=== PATIENT | female | born 1980 | race Caucasian/White ===

== ENCOUNTER → 2019-07-14 | Outpatient (REF) | payer BC ==
[~2019-07-14] MED LIST: IBUP-1114 PO; MAPA500T2 PO; PRENTAB20 PO
[2019-07-14 17:45] LABS: GLUCOSE CHALLENGE TEST 1 HOUR 112 MG/DL (LESS THAN 140)
[2019-07-14 17:59] LABS: HEMATOCRIT 41.7 % (36.0-47.0); HEMOGLOBIN 14.1 g/dl (12.0-15.5); MEAN CORPUSCULAR HEMOGLOBIN 31.7 pg (27.0-33.0); MEAN CORPUSCULAR HGB CONC 33.8 g/dl (32.0-36.5); MEAN CORPUSCULAR VOLUME 93.7 fl (80.0-96.0); PLATELET COUNT, AUTOMATED 278 10^3/uL (150-450); RED BLOOD COUNT 4.45 10^6/uL (4.00-5.40); WHITE BLOOD COUNT 11.1 10^3/uL (4.0-10.0)
[2019-07-14 18:12] LABS: RUBELLA IgG QUALITATIVE IMMUNE (IMMUNE)
[2019-07-14 18:40] LABS: HIV 1&2 SCREEN CENTAUR NEGATIVE (NEGATIVE)
[2019-07-14 21:19] LABS: CHLAMYDIA DNA AMPLIFICATION NEGATIVE (NEGATIVE); GC DNA AMPLIFICATION NEGATIVE (NEGATIVE)
[2019-07-17 09:58] LABS: HEPATITIS B SURFACE ANTIGEN NEGATIVE (NEGATIVE)
[2019-07-17 10:26] LABS: HEPATITIS C VIRUS ABY INDEX < 0.0 INDEX (<0.8)
== END ==
LOC: M PLALAB 12:23
PROVIDERS: ATTEND Obstetrics & Gynecology
DX: Z36.89 Encounter for other specified antenatal screening (principal); O09.529 Supervision of elderly multigravida, unspecified trimester

== ENCOUNTER → 2019-08-24 | Outpatient (CLI) | payer BC ==
--- NOTE | 2019-08-25 09:00 | REP ---
Clinical: Anatomical evaluation. Comparison: Variable . Findings: Examination demonstrates a single live intrauterine in variable presentation. motion is identified by technologist. Placenta is noted posterior and grade I with evidence for marginal previa essentially abutting the closed internal os. Amniotic fluid volume is normal. Cervix measures 3.4 cm in length and appears closed. No evidence for nuchal cord. Two presumed complex anterior intramural fibroids measure 2.7 cm and 2.5 cm maximal diameter. Gestational age by current measurements 19 weeks 5 days with JOB 01/13/2020 . FHR equals 154 beats per minute. BPD 4.3 cm 19 weeks 0 days HC 17.0 cm 19 weeks 4 days AC 14.1 cm 19 weeks 3 days FL 3.4 cm 20 weeks 4 days HL 3.2 cm 20 weeks 6 days HC/AC ratio 1.20 Estimated weight 319 grams ( 55th percentile). Anatomical assessment demonstrates normal structures including cranium, choroid plexus, cavum, cerebellum/posterior fossa, facial features, lungs, four-chamber heart/ventricular outflow tracts, diaphragm, stomach, cord insertion/three-vessel cord, kidneys/bladder, spine, and extremities. Impression: 1. Single live intrauterine in variable presentation demonstrating appropriate estimated weight. 2. Marginal previa. 3. Anatomical assessment is complete and normal. 4. Anterior intramural uterine fibroids.
== END ==
LOC: M WHC 15:05
PROVIDERS: ATTEND Advanced Practice Midwife
DX: O09.522 Supervision of elderly multigravida, second trimester (principal); Z3A.19 19 weeks gestation of pregnancy; O44.22 Partial placenta previa NOS or without hemorrhage, second trimester; D25.1 Intramural leiomyoma of uterus; O34.12 Maternal care for benign tumor of corpus uteri, second trimester

== ENCOUNTER → 2019-09-29 | Outpatient (REF) | payer BC ==
[2019-09-29 17:55] LABS: HEMATOCRIT 37.1 % (36.0-47.0); HEMOGLOBIN 12.6 g/dl (12.0-15.5); MEAN CORPUSCULAR HEMOGLOBIN 32.6 pg (27.0-33.0); MEAN CORPUSCULAR VOLUME 96.1 fl (80.0-96.0); PLATELET COUNT, AUTOMATED 253 10^3/uL (150-450); RED BLOOD COUNT 3.86 10^6/uL (4.00-5.40); WHITE BLOOD COUNT 12.3 10^3/uL (4.0-10.0)
== END ==
LOC: M PLALAB 14:23
PROVIDERS: ATTEND Nurse Practitioner Women's Health
DX: Z36.89 Encounter for other specified antenatal screening (principal); Z3A.21 21 weeks gestation of pregnancy

== ENCOUNTER → 2019-11-01 | Outpatient (CLI) | payer BC ==
--- NOTE | 2019-11-01 13:41 | REP ---
Clinical: Anatomical evaluation. Comparison: 08/24/2019 . Findings: Examination demonstrates a single live intrauterine in transverse (head to maternal left) presentation. motion is identified by technologist. Placenta is noted posteriorly, low-lying (1.5 cm from the closed internal os) and grade zero without evidence for placenta previa or abruption. Amniotic fluid volume is lower limits of normal. Cervix measures 4.7 cm in length and appears closed. No evidence for nuchal cord. Gestational age by LMP 29 weeks 5 days with JOB 01/12/2020 . FHR equals 152 beats per minute. Amniotic fluid index: 8.9 cm (9.1 - 23.3) Impression: Posterior grade zero low-lying placenta 1.5 cm from the office. Cervix appears closed and measures 4.7 cm. Amniotic fluid volume is just below normal range.
== END ==
LOC: M WHC 12:43
PROVIDERS: ATTEND Advanced Practice Midwife
DX: Z36.3 Encounter for antenatal screening for malformations (principal); O44.42 Low lying placenta NOS or without hemorrhage, second trimester; Z3A.29 29 weeks gestation of pregnancy

== ENCOUNTER → 2019-12-13 | Outpatient (REF) | payer BC ==
[~2019-12-13] MED LIST changes: +LABE10TAB PO; +METO1TAB32; +NITR100C2
== END ==
LOC: M SFHCWAGY 10:03
PROVIDERS: ATTEND Advanced Practice Midwife
DX: Z34.80 Encounter for supervision of other normal pregnancy, unspecified trimester (principal); Z3A.00 Weeks of gestation of pregnancy not specified

== ENCOUNTER → 2019-12-21 | Outpatient (CLI) | payer BC ==
--- NOTE | 2020-01-24 10:50 | REP ---
OBSTETRIC ULTRASOUND Delay in reporting results from hospital computer malfunction from malware / ransomware. REASON FOR EXAM: growth and localization of low lying placenta. FINDINGS: There is a single intrauterine gestation in a cephalic presentation. The placenta is posterior, grade 2, and extends into the lower uterine segment. The inferior tip of the placenta is approximately 2.4 cm from the internal cervical os. There is no abruptio. heart rate is 136 beats per minute. Subjectively the amniotic fluid volume is normal. The amniotic fluid index is 13.0. There is a 1.8 x 2.8 hypoechoic lesion in the anterior myometrium likely a fibroid. The composite gestational age by [facility] ultrasound is 35 weeks 3 days. Estimated date of delivery (JOB) is 01/29/2020. The estimated weight is 2976 grams. This is the 44th percentile. IMPRESSION: The placenta remains in the lower uterine segment with the inferior tip 2.4 cm from the internal cervical os. There is a 2.8 x 1.8 cm fibroid in the anterior myometrium. MTDD
== END ==
LOC: M WHC 10:42
PROVIDERS: ATTEND Advanced Practice Midwife
DX: O26.843 Uterine size-date discrepancy, third trimester (principal); O44.43 Low lying placenta NOS or without hemorrhage, third trimester

== ENCOUNTER 2019-12-22 15:27 | Inpatient (IN) | payer BC ==
[2019-12-22] VITALS (14 sets, daily range): BP systolic 127–172; BP diastolic 72–95
[~2019-12-22] VITALS: Ht 160 cm; Wt 54.5 kg
[~2019-12-22 15:27] MED LIST changes: -LABE10TAB PO; -METO1TAB32; -NITR100C2
[2019-12-22] MEDS ORDERED: OXYTOCIN 30 UNITS IN 0.9% NaCl 500ML IV BAG (J2590) As Ordered ONE (15:34)
[2019-12-22] MEDS ORDERED: OXYTOCIN INJ 10 UNITS/ML VIAL (J2590) IV STA (15:41)
[2019-12-22] MEDS ORDERED: OXYTOCIN DRIP 30 UNITS in IV 1 EA IV SCH (16:00)
[2019-12-22] MEDS ORDERED: BUTORPHANOL 2 MG/ML INJ (J0595) As Ordered ONE (16:03)
[2019-12-22] MEDS: BUTORPHANOL 2 MG/ML INJ (J0595) IV ONE ×2 (16:12→19:00)
[2019-12-22 17:10] LABS: HEMATOCRIT 45.7 % (36.0-47.0); HEMOGLOBIN 15.9 g/dl (12.0-15.5); MEAN CORPUSCULAR HEMOGLOBIN 31.6 pg (27.0-33.0); MEAN CORPUSCULAR HGB CONC 34.8 g/dl (32.0-36.5); MEAN CORPUSCULAR VOLUME 90.9 fl (80.0-96.0); PLATELET COUNT, AUTOMATED 230 10^3/uL (150-450); RED BLOOD COUNT 5.03 10^6/uL (4.00-5.40); WHITE BLOOD COUNT 13.1 10^3/uL (4.0-10.0)
[2019-12-22 18:01] LABS: ALT/SGPT 20 U/L (12-78); BILIRUBIN,TOTAL 0.4 MG/DL (0.2-1.0); CREATININE FOR GFR 0.82 MG/DL (0.55-1.30); GLOMERULAR FILTRATION RATE > 60.0 (>60); LDH LACTATE DEHYDROGENASE 344 U/L (84-246); URIC ACID 4.7 MG/DL (2.6-6.0)
[2019-12-22] MEDS ORDERED: RHOGAM 300 MCG (1500 IU) INJ (J2790) IM SCH (19:00)
[2019-12-22] MEDS ORDERED: METHYLERGONOVINE MALEATE 0.2 MG TAB PO PRN (19:00)
[2019-12-22] MEDS ORDERED: MEASLES,MUMPS,RUBELLA VACCINE INJ (MMR-II) (90707) SC SCH (19:00)
[2019-12-22] MEDS ORDERED: LIDOCAINE 1% MDV 20ML VIAL INFIL ONE (19:00)
[2019-12-22] MEDS ORDERED: IBUPROFEN 600MG TAB PO PRN (19:00)
[2019-12-22] MEDS ORDERED: DIBUCAINE 1% OINTMENT 30GM TOP PRN (19:00)
[2019-12-22] MEDS ORDERED: ANUSOL HC CREAM 30GM TOP PRN (19:00)
[2019-12-22] MEDS ORDERED: MOM 30ML SUSPENSION UDC PO PRN (19:00)
[2019-12-22] MEDS ORDERED: DOCUSATE SODIUM 100 MG CAP PO PRN (19:00)
[2019-12-22] MEDS ORDERED: BUTORPHANOL 2 MG/ML INJ (J0595) IV ONE (19:00)
[2019-12-22] MEDS ORDERED: ACETAMINOPHEN TAB 650MG DOSE (2X325MG) PO PRN (19:00)
[2019-12-22] MEDS ORDERED: ACETAMINOPHEN 500 MG TAB PO PRN (19:00)
--- NOTE | 2019-12-22 19:29 | HPEPDOC ---
Obstetrical History & Physical General Date of Admission Dec 22, 2019 at 15:27 History of Present Illness Arrived via private care. Delivered in parking lot of [facility] center Chief Complaint: Contractions, term Information Provided By: Patient Age: 39 : 2 Term: 1 Pre-term: 0 Abortions: 0 Livin Care Care: Good Care Dating Final EDC: Jan 12, 2020 EGA at Admission: 37 Past Medical History Past Obstetrical History : Past Obstetrical History: Primgravida Type of Delivery: Spontaneous Vaginal Del. (2016) Complications: Yes (gdm) [employer] History: No pertinent history Past Medical History Medical History Noncontributory Surgical History: Denies/None Family History Significant Family History: No pertinent family hx Allergies Coded Allergies: Penicillins (Verified Allergy, Intermediate, hives, 06/19/19) Medications Scheduled Multivitamins/ ( 28-0.8 mg) 1 Tab Tab, 1 TAB PO DAILY Scheduled PRN Acetaminophen (Mapap) 500 Mg Tab, 1,000 MG PO Q6HP PRN for MILD PAIN (PS 1-4) Ibuprofen (Ibuprofen) 400 Mg Tab, 600 MG PO Q6HP PRN for MODERATE PAIN (PS 5-7) Physical Examination Physical Examination GENERAL: Alert and oriented times three. Appears uncomfortable. Umbilical cord protruding from vagina. scant bleeding Vital Signs/I&O Vital Signs Date Time Temp Pulse Resp B/P (MAP) Pulse Ox O2 Delivery O2 Flow Rate FiO2 12/22/19 19:00 20 12/22/19 17:49 99.5 89 134/88 (103) 12/22/19 16:05 Room Air Laboratory Data 24H LABS Laboratory Tests 2 12/22/19 15:30: Serology Scanned Report Hepatitis B Testing 12/22/19 15:40: Nucleated Red Blood Cells % (auto) 0.0, Glomerular Filtration Rate > 60.0, Uric Acid 4.7, Total Bilirubin 0.4, Aspartate Amino Transf (AST/SGOT) 37, Alanine Aminotransferase (ALT/SGPT) 20, Lactate Dehydrogenase 344H, Syphilis Serology NONREACTIVE CBC/BMP Laboratory Tests 12/22/19 15:40 Pertinent Laboratoy Data Blood Type: O+ RBC Antibody Screen: Negative HIV: Negative Hepatitis B: Negative Hepatitis C: Negative Rapid Plasma Reagin: Nonreactive Rubella: Immune Chlamydia/Gonorrhea: Negative Group B Streptococcus: Unknown Glucose Tolerance Test: 112 Anatomy Ultrasound Normal Anatomy: Yes Placenta Previa: No Vaginal Examination Dilation: complete (delivered) Assessment/Plan Assessment Lucy is a 39-year-old (G)2 para (P)2-0-0-2 at 37 weeks. Presents to Labor and Delivery (L&D) after precipitous delivery in parking lot of [facility]. Plan Admit and orient. Webmaster and consent. Diet: regular. Group B Streptococcus (GBS) unknown. Labs and intravenous (IV) per unit protocol. Josefina Nino CNM Dec 22, 2019 19:29
--- NOTE | 2019-12-22 19:35 | DNPDOC ---
[facility] Delivery Note Delivery Note DATE OF DELIVERY: 12/22/2019 PREDELIVERY DIAGNOSIS: 37-0/7 weeks' gestation and labor. POST DELIVERY DIAGNOSIS: Delivered. PROCEDURE: Unattended Spontaneous vaginal delivery, precipitous. PROVIDER: Josefina Nino CNM ANESTHESIA: None. ESTIMATED BLOOD LOSS: 200 mL. FINDINGS: 7 pound 1 ounce male infant, Score unknown/9, nuchal cord times 1. DELIVERY SUMMARY: Patient is a 39-year-old 2 now para 2-0-0-2 who was admitted to labor and delivery following precipitous unattended delivery in parking [facility]. Infant breathing, active and pink upon assessment by staff. Stadol 0.5mg IV given x 2 following delivery for patient comfort. Placenta delivered vasquez, intact with 3v cord @ 1556. Fundus firmed with massage and IV pitocin bolus. EBL 200ml. 1st degree vaginal and perineal lacerat ion repaired after infiltration with lidocaine using 3-0 vicryl rapide. Sponge sharp and instrument count correct following procedure. Josefina Nino CNM Dec 22, 2019 19:35
[2019-12-23] VITALS (7 sets, daily range): BP systolic 116–158; BP diastolic 75–100
[2019-12-23] MEDS: IBUPROFEN 800 MG TAB PO PRN ×2 (05:37→13:19)
--- NOTE | 2019-12-23 07:55 | IPNPDOC ---
Text Note Date of Service The patient was seen on 12/23/19. NOTE Feels well. Adequate pain management. Voiding. Labile mild hypertension. Pt reports this happening after her first . Wasn't on meds at that time Fundus firm, NT, down 1 FB Lochia rubra light without odor Perineum well approximated PP #1, mild hypertension Reviewed pt status with Dr Cobb. Will observe today and consider antihypertensive Consider discharge in am VS,Fishbone, I+O VS, Fishbone, I+O Laboratory Tests 12/22/19 15:40 Vital Signs Date Time Temp Pulse Resp B/P (MAP) Pulse Ox O2 Delivery O2 Flow Rate FiO2 12/23/19 06:25 144/100 (115) 12/23/19 06:00 98.7 61 18 12/22/19 16:05 Room Air I&O- Last 24 Hours up to 6 AM 12/23/19 06:00 Intake Total 1100 ml Output Total 700 ml Balance 400 ml Josefina Nino CNM Dec 23, 2019 07:55
[2019-12-23] MEDS: PRENATAL VITAMINS CHEWABLE TABLET PO SCH (08:09)
[2019-12-24 02:00] VITALS: BP 141/92
[2019-12-24 06:00] VITALS: BP 138/90
[2019-12-24] MEDS: IBUPROFEN 800 MG TAB PO PRN (08:22)
[2019-12-24] MEDS: PRENATAL VITAMINS CHEWABLE TABLET PO SCH (08:22)
[2019-12-24 10:00] VITALS: BP 129/74
== END 2019-12-24 19:05 | disposition home or self-care (01) | DRG 560 ==
LOC: M LDI 15:27 → M OBS 19:00
PROVIDERS: ADMIT Advanced Practice Midwife; ATTEND Advanced Practice Midwife
PROC: 0HQ9XZZ Repair Perineum Skin, External Approach (ICD-10-PCS; principal; 2019-12-22)
DX: O70.0 First degree perineal laceration during delivery (principal)

== ENCOUNTER 2019-12-29 18:08 | Emergency (ER) | payer BC ==
[~2019-12-29] VITALS: Ht 160 cm; Wt 49.8 kg
[2019-12-29] MEDS ORDERED: NITR100C2 (18:20)
[2019-12-29] MEDS ORDERED: METO1TAB32 (18:20)
[2019-12-29 19:45] LABS: BASO # 0.1 10^3/uL (0.0-0.2); BASO % 0.5 % (0.0-1.0); EOS # 0.3 10^3/uL (0.0-0.5); EOS % 2.7 % (0.0-3.0); HEMATOCRIT 43.1 % (36.0-47.0); LYMPH # 2.3 10^3/uL (1.5-5.0); LYMPH % 23.3 % (24.0-44.0); MEAN CORPUSCULAR HEMOGLOBIN 32.1 pg (27.0-33.0); MEAN CORPUSCULAR HGB CONC 34.8 g/dl (32.0-36.5); MEAN CORPUSCULAR VOLUME 92.3 fl (80.0-96.0); MONO # 0.6 10^3/uL (0.0-0.8); MONO % 5.9 % (0.0-5.0); NEUTROPHILS # 6.6 10^3/uL (1.5-8.5); NEUTROPHILS % 67.3 % (36.0-66.0); PLATELET COUNT, AUTOMATED 319 10^3/uL (150-450); RED BLOOD COUNT 4.67 10^6/uL (4.00-5.40); WHITE BLOOD COUNT 9.8 10^3/uL (4.0-10.0)
[2019-12-29] MEDS ORDERED: LABETALOL 100 MG TAB PO ONE (20:00)
[2019-12-29 20:17] LABS: ALBUMIN 3.1 GM/DL (3.2-5.2); ALT/SGPT 50 U/L (12-78); BILIRUBIN,DIRECT 0.1 MG/DL (0.0-0.2); BILIRUBIN,TOTAL 0.3 MG/DL (0.2-1.0); BLOOD UREA NITROGEN 11 MG/DL (7-18); CARBON DIOXIDE LEVEL 27 MEQ/L (21-32); CHLORIDE LEVEL 109 MEQ/L (98-107); CREATININE FOR GFR 0.57 MG/DL (0.55-1.30); GLOMERULAR FILTRATION RATE > 60.0 (>60); GLUCOSE, FASTING 84 MG/DL (70-100); MAGNESIUM LEVEL 2.1 MG/DL (1.8-2.4); POTASSIUM SERUM 3.8 MEQ/L (3.5-5.1); SODIUM LEVEL 141 MEQ/L (136-145); TOTAL PROTEIN 6.8 GM/DL (6.4-8.2); URIC ACID 4.7 MG/DL (2.6-6.0)
[2019-12-29 20:51] LABS: APPEARANCE, URINE CLEAR (CLEAR); BACTERIA, URINE AUTO NEGATIVE (NEGATIVE); BILIRUBIN, URINE AUTO NEGATIVE (NEGATIVE); BLOOD, URINE BLOOD 2+ (NEGATIVE); COLOR, URINE STRAW (YELLOW); GLUCOSE, URINE (UA) AUTO NEGATIVE (NEGATIVE); KETONE, URINE AUTO NEGATIVE (NEGATIVE); LEUKOCYTE ESTERASE, URINE AUTO TRACE (NEGATIVE); MUCUS, URINE SMALL (NEGATIVE); NITRITE, URINE AUTO NEGATIVE (NEGATIVE); PROTEIN, URINE AUTO NEGATIVE (NEGATIVE); RBC, URINE AUTO 2 /HPF (0-3); SPECIFIC GRAVITY URINE AUTO 1.009 (1.002-1.035); SQUAMOUS EPITHELIAL CELL UR AU 0 /HPF (0-6); UROBILINOGEN, URINE AUTO 0.2 mg/dL (0.0-2.0); WBC, URINE AUTO 3 /HPF (0-3)
[2019-12-29] MEDS ORDERED: LABE10TAB PO (21:12)
[2019-12-29 21:35] VITALS: BP 151/92
--- NOTE | 2020-01-11 15:42 | ECGEPIP ---
[facility] - ED Test Date: 2019-12-29 Pat Name: JONATHAN SOSA Department: Room: - Gender: Female Art Professor: ASPEN : [id number] Requested By: Anastasia Antony Order Number: [id number] Reading MD: Anastasia Antony Measurements Intervals [place] Rate: 77 P: 73 MI: 134 QRS: 52 QRSD: 86 T: 40 QT: 345 QTc: 392 Interpretive Statements SINUS RHYTHM WITH SINUS ARRHYTHMIA NORMAL ECG SEE SCANNED DOWNTIME REPORT
== END 2019-12-29 21:25 | disposition home or self-care (01) ==
LOC: M ED 18:08
DX: O16.5 Unspecified maternal hypertension, complicating the puerperium (principal); Z79.899 Other long term (current) drug therapy; Z88.0 Allergy status to penicillin